=== PATIENT | female | born 1995 | race African-American/Black ===

== ENCOUNTER 2017-06-26 13:47 | Outpatient (CLI) | payer MEDICAID ==
[2017-06-26 14:27] VITALS: BP 103/59
[2017-06-26] MEDS ORDERED: LACTATED RINGERS 1,000 ML IV SCH (15:00)
== END 2017-06-26 16:19 | disposition home or self-care (01) ==
LOC: TRG 13:47
PROVIDERS: ATTEND Obstetrics & Gynecology
DX: O47.1 False labor at or after 37 completed weeks of gestation (principal); Z3A.38 38 weeks gestation of pregnancy
CPT/HCPCS: 59025; 96360; J7120